=== PATIENT | male | born 1970 | race Caucasian/White ===

== ENCOUNTER → 2025-02-28 09:19 | Outpatient (REF) | payer BC, SELFPAY | LOC: HWRAD 09:19 | PROVIDERS: ATTENDING PHYSICIAN Specialist; FAMILY PHYSICIAN Nurse Practitioner Adult Health | DX: M67.88 Other specified disorders of synovium and tendon, other site (principal); M19.011 Primary osteoarthritis, right shoulder; M25.811 Other specified joint disorders, right shoulder | CPT/HCPCS: 73200 ==